=== PATIENT | male | born 1965 | race American Indian/Alaskan Native ===

== ENCOUNTER 2019-09-24 17:12 | Emergency (ER) | payer MEDICARE ==
[2019-09-24 17:50] VITALS: BP 186/102
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
== END 2019-09-24 18:00 | disposition left against medical advice (07) ==
LOC: ED 17:12
DX: S82.92XA Unspecified fracture of left lower leg, initial encounter for closed fracture (principal); Z76.0 Encounter for issue of repeat prescription; Z98.890 Other specified postprocedural states
CPT/HCPCS: 99281